=== PATIENT | female | born 1990 | race Caucasian/White ===

== ENCOUNTER 2017-02-01 20:04 | Emergency (ER) | payer SELFPAY ==
[~2017-02-01 20:04] MED LIST: ABILIFY5 MG PO; AMOXICILLIN875 MG PO; ATIVAN1 M1 PO; CYCLOBENZAPRINE5 M1 PO; FIORICET1 TA1 PO; HYDROCODON-ACE1 EA16 PO; HYDROCODON-ACE1 EAC7 PO; KETOROLAC TROME10 MG PO; LEXAPRO10 M1 PO; METHOCARBAMOL750 M1 PO; MOBIC7.5 M2 PO; MOTRIN800 MG PO; NECON1 EACH PO; NO HOME MEDICATION; NO HOME MEDICATION XX; NO HOME MEDS; NORCO 5/325 TAB1 TAB PO; PHENERGAN25 MG/SUP1 PR; PREDNISONE20 M1 PO; PRENATAL1 EACH PO; REMERON15 MG PO; SOMA250 MG PO; TRIPNIP TOP; VENTOLIN HFA18 G2 PO; VISTARIL50 MG PO; ZOFRAN ODT4 MG/UDTAB PO; ZOFRAN4 M1 PO
[2017-02-01 22:21] LABS: URINE BILIRUBIN NEGATIVE (NEG); URINE BLOOD SMALL (NEG); URINE GLUCOSE (UA) NEGATIVE (NEG); URINE KETONE LARGE (NEG); URINE LEUKOCYTE ESTERASE POSITIVE (NEG); URINE NITRITE NEGATIVE (NEG); URINE PROTEIN SMALL (NEG); URINE SPECIFIC GRAVITY 1.025 (1.003-1.030)
[2017-02-01 22:23] LABS: URINE APPEARANCE SLIGHTLY HAZY; URINE COLOR YELLOW
[2017-02-01 22:28] LABS: ANION GAP 13 mmol/L (0-20); BLOOD UREA NITROGEN 10 mg/dl (6-24); CALCIUM 8.4 mg/dl (8.5-10.5); CARBON DIOXIDE-VENOUS 22 mmol/L (22-32); CHLORIDE 104 mmol/l (96-110); CREATININE 0.55 mg/dl (0.50-1.10); GLUCOSE 80 mg/dL (70-110); POTASSIUM 3.4 mmol/L (3.7-5.1); SODIUM 136 mmol/L (135-145); URINE BACTERIA 1+; URINE EPITHELIAL CELLS 0-1 /[HPF] (0-10); eGFR VALUE FOR BLACK >90 mL/Min
[2017-02-01] MEDS ORDERED: ZOFRAN ODT4 MG PO (23:27)
[2017-02-01] MEDS ORDERED: MACROBID 100 M100 M1 PO (23:27)
== END 2017-02-01 23:40 ==
LOC: EDMED 20:04
PROVIDERS: Emergency Medicine
DX: O23.41 Unspecified infection of urinary tract in pregnancy, first trimester (principal); O21.1 Hyperemesis gravidarum with metabolic disturbance; O99.331 Smoking (tobacco) complicating pregnancy, first trimester; F17.200 Nicotine dependence, unspecified, uncomplicated; Z3A.12 12 weeks gestation of pregnancy
CPT/HCPCS: J2405; J7030